=== PATIENT | male | born 1955 | race Caucasian/White ===

== ENCOUNTER 2018-12-16 23:56 | Emergency (ER) | payer MEDICARE, OTHER ==
--- NOTE | 2018-12-16 23:58 | ER Report ---
History and Physical Time Seen By MD: 23:58 HPI/ROS CHIEF COMPLAINT: Hypertension HISTORY OF PRESENT ILLNESS: 63-year-old male noted elevated blood pressure at home of 180/110. Patient was at a and is concerned about his health and his future prospects for survival. Patient is a smoker. Patient denies chest pain, shortness of breath, diaphoresis or nausea. Patient denies headache, blurry vision, leg edema. REVIEW OF SYSTEMS: Respiratory: No cough, no dyspnea. Cardiovascular: No chest pain, no palpitations. Gastrointestinal: No vomiting, no abdominal pain. Musculoskeletal: No back pain. Allergies: Coded Allergies: No Known Drug Allergies (Unverified , 12/17/18) Home Meds Active Scripts Amlodipine Besylate (NORVASC) 5 Mg Tablet, 1 TAB PO QDAY for BP control, #30 TAB Prov:SANDRA BRAY 12/17/18 Reported Medications Aspirin (ASPIRIN) 81 Mg Tab.chew, 81 MG PO QDAY, TAB.CHEW 12/17/18 Reviewed Nurses Notes: Yes Old Medical Records Reviewed: Yes Constitutional Vital Sign - Last 24 Hours 12/17/18 12/17/18 12/17/18 12/17/18 00:00 00:04 00:20 00:26 Temp 97.7 Pulse 84 71 Resp 14 B/P (MAP) 160/104 (122) 160/104 137/130 (132) Pulse Ox 94 O2 Delivery Room Air 12/17/18 12/17/18 12/17/18 12/17/18 00:40 00:41 00:46 01:00 Pulse 68 70 B/P (MAP) 139/86 (103) 145/106 (119) Pulse Ox 91 12/17/18 12/17/18 12/17/18 01:01 01:16 01:20 Pulse 74 72 B/P (MAP) 141/87 (105) Pulse Ox 83 95 Physical Exam Vital signs stable, afebrile, pulse ox normal, elevated BP 165/105 General Appearance: The patient is alert, has no immediate need for airway protection and no current signs of toxicity. Eyes: Pupils equal and round no injection. Respiratory: Chest is non tender, lungs are clear to auscultation. Cardiac: regular rate and rhythm, no murmur Gastrointestinal: Abdomen is soft and non tender, no masses, bowel sounds normal. Musculoskeletal: Neck: Neck is supple and non tender. Extremities have full range of motion and are non tender. Skin: No rashes or lesions. DIFFERENTIAL DIAGNOSIS: After history and physical exam differential diagnosis was considered for chest pain including but not limited to myocardial ischemia, pericarditis pulmonary embolus, chest wall pain, hypertension pleural inflammation and pulmonary infectious causes. Medical Decision Making Data Points Result Diagram: 12/17/18 0014 12/17/18 0014 Laboratory Hematology Test 12/17/18 00:14 Red Blood Count 5.76 M/uL (4.00-5.60) Mean Corpuscular Volume 95.8 fL (80.0-96.0) Mean Corpuscular Hemoglobin 33.4 pg (26.0-33.0) Mean Corpuscular Hemoglobin Concent 34.8 g/dL (32.0-36.0) Red Cell Distribution Width 13.1 % (11.5-14.5) Mean Platelet Volume 7.9 fL (7.2-11.1) Neutrophils (%) (Auto) 65.0 % (39.4-72.5) Lymphocytes (%) (Auto) 22.2 % (17.6-49.6) Monocytes (%) (Auto) 7.9 % (4.1-12.4) Eosinophils (%) (Auto) 3.7 % (0.4-6.7) Basophils (%) (Auto) 1.2 % (0.3-1.4) Nucleated RBC Relative Count (auto) 0.0 /100WBC Neutrophils # (Auto) 8.2 K/uL (2.0-7.4) Lymphocytes # (Auto) 2.8 K/uL (1.3-3.6) Monocytes # (Auto) 1.0 K/uL (0.3-1.0) Eosinophils # (Auto) 0.5 K/uL (0.0-0.5) Basophils # (Auto) 0.1 K/uL (0.0-0.1) Nucleated RBC Absolute Count (auto) 0.00 K/uL Sodium Level 140 mmol/L (137-145) Potassium Level 4.1 mmol/L (3.5-5.0) Chloride Level 104 mmol/L (98-107) Carbon Dioxide Level 27 mmol/L (22-30) Blood Urea Nitrogen 10 mg/dl (9-21) Creatinine 0.70 mg/dl (0.66-1.25) Glomerular Filtration Rate Calc > 60.0 Random Glucose 104 mg/dl (75-110) Calcium Level 9.3 mg/dl (8.4-10.2) Total Bilirubin 0.6 mg/dl (0.2-1.3) Aspartate Amino Transf (AST/SGOT) 30 U/L (0-35) Alanine Aminotransferase (ALT/SGPT) 28 U/L (0-56) Alkaline Phosphatase 80 U/L (0-126) Troponin I < 0.012 ng/ml B-Type Natriuretic Peptide 5 pg/ml (0-100) Total Protein 8.2 g/dl (6.3-8.2) Albumin 4.7 g/dl (3.5-5.0) Chemistry Test 12/17/18 00:14 White Blood Count 12.6 k/uL (4.5-11.0) Red Blood Count 5.76 M/uL (4.00-5.60) Hemoglobin 19.2 g/dL (14.0-18.0) Hematocrit 55.1 % (42.0-52.0) Mean Corpuscular Volume 95.8 fL (80.0-96.0) Mean Corpuscular Hemoglobin 33.4 pg (26.0-33.0) Mean Corpuscular Hemoglobin Concent 34.8 g/dL (32.0-36.0) Red Cell Distribution Width 13.1 % (11.5-14.5) Platelet Count 207 K/uL (150-450) Mean Platelet Volume 7.9 fL (7.2-11.1) Neutrophils (%) (Auto) 65.0 % (39.4-72.5) Lymphocytes (%) (Auto) 22.2 % (17.6-49.6) Monocytes (%) (Auto) 7.9 % (4.1-12.4) Eosinophils (%) (Auto) 3.7 % (0.4-6.7) Basophils (%) (Auto) 1.2 % (0.3-1.4) Nucleated RBC Relative Count (auto) 0.0 /100WBC Neutrophils # (Auto) 8.2 K/uL (2.0-7.4) Lymphocytes # (Auto) 2.8 K/uL (1.3-3.6) Monocytes # (Auto) 1.0 K/uL (0.3-1.0) Eosinophils # (Auto) 0.5 K/uL (0.0-0.5) Basophils # (Auto) 0.1 K/uL (0.0-0.1) Nucleated RBC Absolute Count (auto) 0.00 K/uL Glomerular Filtration Rate Calc > 60.0 Calcium Level 9.3 mg/dl (8.4-10.2) Total Bilirubin 0.6 mg/dl (0.2-1.3) Aspartate Amino Transf (AST/SGOT) 30 U/L (0-35) Alanine Aminotransferase (ALT/SGPT) 28 U/L (0-56) Alkaline Phosphatase 80 U/L (0-126) Troponin I < 0.012 ng/ml B-Type Natriuretic Peptide 5 pg/ml (0-100) Total Protein 8.2 g/dl (6.3-8.2) Albumin 4.7 g/dl (3.5-5.0) EKG/Imaging EKG Interpretation 12 lead EK Rhythm: normal sinus rhythm [place]: normal QRS: normal ST segments: normal, no evidence of ischemia or dysrhythmia Imaging X-ray: Single view chest x-ray was obtained. I viewed the images myself on the PACS system. My interpretation of the images is: No infiltrate, no effusion, normal mediastinum. The radiologist interpretation had no clinically significant variation from this interpretation. ED Course/Re-evaluation ED Course Patient was admitted to an examination room. H&P was done. The differential diagnoses was considered. On clinical examination. Patient has an elevated blood pressure. He has no other symptoms. An EKG is unremarkable. Diagnostic laboratory studies show polycythemia, likely secondary to nocturnal hypoxia or sleep apnea. Patient may also have COPD. Wrist x-rays normal. Patient medicated with Norvasc 5 mg. His blood pressure responded nicely. He's placed on Norvasc 5 mg per day. He is encouraged to stop smoking. He's advised to follow-up with his primary care doctor back in [place], [place]. Decision to Disposition Date: Dec 17, 2018 Decision to Disposition Time: 00:52 Depart Departure Latest Vital Signs Vital Signs Date Time Temp Pulse Resp B/P (MAP) Pulse Ox O2 Delivery O2 Flow Rate FiO2 3/16/19 01:20 141/87 (105) 12/17/18 01:16 72 95 12/17/18 00:04 97.7 14 Room Air Impression: Primary Impression: Hypertension Additional Impression: Polycythemia Condition: Improved Disposition: HOME OR SELF-CARE New Scripts Amlodipine Besylate (NORVASC) 5 Mg Tablet 1 TAB PO QDAY for BP control, #30 TAB Prov: SANDRA BRAY DO 12/17/18 Patient Instructions: Hypertension (ED) Additional Instructions: Follow-up with primary care. Suture blood pressure rechecked in several weeks Consider a sleep study. You have polycythemia Problem Qualifiers Primary Impression: Hypertension Hypertension type: essential hypertension Qualified Codes: I10 - Essential (primary) hypertension SANDRA BRYA DO Dec 16, 2018 23:58
[2018-12-17] MEDS ORDERED: ASPI81TA94 PO (00:09)
[2018-12-17] MEDS ORDERED: amLODIPine BESYL(*) 5 MG TAB PO ONE (00:10)
--- NOTE | 2018-12-17 00:20 | EKG ---
FACILITY: [facility] PATIENT NAME: JUVENTINO WEINER : [id number] MR: [id number] V: [id number] EXAM DATE: ORDERING PHYSICIAN: SANDRA BRAY TECHNOLOGIST: KIANNA Test Reason : elevated blood pressure Blood Pressure : / mmHG Vent. Rate : 076 BPM Atrial Rate : 076 BPM P-R Int : 154 ms QRS Dur : 078 ms QT Int : 386 ms P-R-T Axes : 042 -12 -07 degrees QTc Int : 434 ms Normal sinus rhythm Normal ECG No previous ECGs available Confirmed by Kaushik Paulino ([id number]) on 12/17/2018 6:59:22 AM Referred By: KATARINA Confirmed By:Kaushik Cisse
[2018-12-17 00:25] LABS: PLATELET COUNT, AUTOMATED 207 K/uL (150-450)
[2018-12-17] MEDS ORDERED: AMLO-101 PO (00:53)
--- NOTE | 2018-12-17 01:17 | RADIOLOGY IMAGING REPORT ---
[place] [facility] [place] NAME: John Duckworth : 1955 MR: [id number] V: [id number] EXAM DATE: ORDERING PHYSICIAN: SANDRA BRAY TECHNOLOGIST: [place] [facility] [place] : 1955 Visit/Account:[id number] Date of Sevice: 12/17/2018 PORTABLE CHEST: Indication: Chest pain. Technique: A single frontal film was obtained. Comparison: None available. Skeletal and soft tissue structures: Intact and unremarkable. Heart and mediastinum: Within normal limits. Lung fierro: Well-expanded and clear. Pleural spaces: Unremarkable. Impression: No acute process. Report Dictated By: Boby Eaton MD at 12/17/2018 1:12 AM Report E-Signed By: Boby Eaton MD at 12/17/2018 1:13 AM [id number]
[2018-12-17 01:20] VITALS: BP 141/87
== END 2018-12-17 01:46 | disposition home or self-care (01) ==
LOC: ER 12-17 00:17
DX: I10 Essential (primary) hypertension (principal); D75.1 Secondary polycythemia; R07.9 Chest pain, unspecified
CPT/HCPCS: 36415; 71045; 83880; 84484; 85025; 93005; 99284; A9270; 82040; 82247; 82310; 82374; 82435; 82565; 82947; 84075; 84132; 84155; 84295; 84450; 84460; 84520